=== PATIENT | female | born 1985 | race Caucasian/White ===

== ENCOUNTER 2020-07-28 21:39 | Emergency (ER) | payer OTHER, MEDICAID, SELFPAY ==
--- NOTE | ~2020-07-28 | XR_ITS ---
EXAMINATION: XR lumbar spine 2-3V DATE: 07/28/2020 22:11 INDICATION: Low back pain TECHNIQUE: Anteroposterior and lateral views of the lumbar spine, and cone-down lateral view of the l umbosacral junction were obtained. COMPARISON: None. FINDINGS: There are 3 mm of retrolisthesis of L5 on S1. The vertebral body alignment is otherwise gabriel ntained. Vertebral body heights and intervertebral disc spaces are normal. There is no fracture. A mo derate volume of colonic stool is present. IMPRESSION: 1. Mild lumbar spondylosis without acute findings. Reviewed, dictated and finalized at location A.
[2020-07-28 21:44] VITALS: BP 115/59; PULSE 81; RESP 16; TEMP 37.1; O2SAT 97
--- NOTE | 2020-07-28 22:00 | ED.BACK ---
HPI - Back Pain/Injury General Chief Complaint: Back Pain/Injury <Tamiko Arthur PA-C - Last Filed: 07/28/20 23:52> Stated Complaint: lower back pain <SREE Das Last Filed: 07/28/20 23:52> Time Seen by Provider: 07/28/20 21:44 <Tamiko Arthur PA-C - Last Filed: 07/28/20 23:52> Source: patient <SREE Das Last Filed: 07/28/20 23:52> Mode of arrival: ambulatory <SREE Das Last Filed: 07/28/20 23:52> Limitations: no limitations <SREE Das Last Filed: 07/28/20 23:52> History of Present Illness HPI Narrative: This is a 35-year-old female that presents the emergency department for low back pain since this morning. No known injury or trauma. Reports the pain radiates down her left leg. Pain is worse with movement and relieved with rest. She took Advil couple of hours prior to arrival. Denies fever, saddle anesthesia, bowel/bladder incontinence, abdominal pain, vomiting, dysuria, hematuria. <Tamiko Arthur PA-C - Last Filed: 07/28/20 23:52> Related Data Allergies/Adverse Reactions: Allergies Allergy/AdvReac Type Severity Reaction Status Date / Time No Known Allergies Allergy Unverified 02/27/19 09:33 <Tamiko Arthur PA-C - Last Filed: 07/28/20 23:52> Review of Systems Review of Systems: Narrative: CONSTITUTIONAL: Denies fever GASTROINTESTINAL: Denies abdominal pain, nausea, vomiting GENITOURINARY: Denies dysuria or hematuria. SKIN: Denies rash MUSCULOSKELETAL: Reports back pain, joint pain, and myalgia. NEUROLOGIC: Denies numbness, or weakness. <SREE Das Last Filed: 07/28/20 23:52> All systems reviewed & are unremarkable except as noted in HPI and below <SREE Das Last Filed: 07/28/20 23:52> COUNT INCLUDES THE [facility] Social History Social History: Social History (Updated 07/28/20 @ 22:01 by Tamiko Arthur PA-C) Smoking status: Never smoker Alcohol intake: never Substance use: never <Tamiko Arthur PA-C - Last Filed: 07/28/20 23:52> Exam Narrative: Exam Narrative: GENERAL: Well-appearing, well-nourished, and in no acute distress. HEAD: Normocephalic, atraumatic. EYES: EOMI. CHEST: Clear to auscultation. No respiratory distress. No wheezes rales or rhonchi HEART: Regular rate and rhythm. No murmur heard. Normal peripheral pulses. ABDOMEN: Soft, nontender, nondistended, normal active bowel sounds. No CVA tenderness BACK: No midline spinal tenderness EXTREMITIES: Normal range of motion. No edema. Strength equal in bilateral lower extremities (5/5). Normal patellar reflexes bilaterally SKIN: Warm, dry, no rash. NEURO: No focal deficits. Alert and oriented x3. Normal gait PSYCH: Normal mood and affect <Tamiko Arthur PA-C - Last Filed: 07/28/20 23:52> Course Vital Signs Vital signs: Vital Signs Temperature 37.1 C 07/28/20 21:44 Pulse Rate 81 07/28/20 21:44 Respiratory Rate 16 07/28/20 21:44 Blood Pressure 115/59 L 07/28/20 21:44 Pulse Oximetry 97 07/28/20 21:44 Temperature 37.1 C 07/28/20 21:44 Pulse Rate 81 07/28/20 21:44 Respiratory Rate 16 07/28/20 21:44 Blood Pressure 115/59 L 07/28/20 21:44 Pulse Oximetry 97 07/28/20 21:44 <Tamiko Arthur PA-C - Last Filed: 07/28/20 23:52> Vital Signs Temperature 37.1 C 07/28/20 21:44 Pulse Rate 81 07/28/20 21:44 Respiratory Rate 16 07/28/20 21:44 Blood Pressure 115/59 L 07/28/20 21:44 Pulse Oximetry 97 07/28/20 21:44 Temperature 37.1 C 07/28/20 21:44 Pulse Rate 81 07/28/20 21:44 Respiratory Rate 16 07/28/20 21:44 Blood Pressure 115/59 L 07/28/20 21:44 Pulse Oximetry 97 07/28/20 21:44 <Brooklynn Fragoso MD - Last Filed: 07/28/20 23:55> MDM - Back Pain/Injury MDM Narrative Medical decision making narrative: Patient presents to the emergency department for low back pain today. No known injury or trauma. Patient is neurologically i
[2020-07-28] MEDS: ACETAMINOPHEN 500 MG TABLET 1000 MG PO (22:20)
[2020-07-28] MEDS: diazePAM INJ (*CRX) 10 MG/2 ML SYRINGE 5 MG IM (22:58)
[2020-07-28 23:07] LABS: Add Urine Microscopic? YES; Appearance Urine Cloudy (Clear); Bilirubin Urine Negative (Negative); Color Urine Yellow (Yellow); Glucose Urine UA Negative (Negative); Ketones Urine Negative (Negative); Leukocyte Esterase Ur 2+ LEU/UL (Negative); Mucus Urine Rare /lpf; Nitrate Urine Negative (Negative); Protein Urine 1+ mg/dL (Negative); Specific Grav Ur 1.027 (1.001-1.035); Squamous Epithelial Cell Urine Many /hpf (Few); WBC Urine >75 /hpf
[2020-07-28 23:13] LABS: Blood Urine Negative (Negative)
[2020-07-29 00:21] VITALS: BP 132/78; PULSE 77; RESP 16; O2SAT 99
== END 2020-07-29 00:22 | disposition home or self-care (01) ==
PROVIDERS: Physician Assistant; Emergency Provider Emergency Medicine
DX: M54.42 Lumbago with sciatica, left side (principal); R82.81 Pyuria; M47.816 Spondylosis without myelopathy or radiculopathy, lumbar region
CPT/HCPCS: 72100; 81001; 81025; 87077; 87086; 87088; 96372; 99283; A9270; J3360

== ENCOUNTER 2020-10-22 07:42 | Emergency (ER) | payer OTHER, MEDICAID, SELFPAY ==
[2020-10-22 07:44] VITALS: BP 119/70; PULSE 66; RESP 20; TEMP 36.8; O2SAT 100
[2020-10-22] MEDS: SODIUM CHLORIDE 0.9% IV 1,000 ML 999 ML IV CONT (08:30)
[2020-10-22] MEDS: diphenhydrAMINE HCl INJ 50 MG/ML VIAL 25 MG IV PUSH (08:31)
[2020-10-22] MEDS: METOCLOPRAMIDE HCL INJ 10 MG/2 ML VIAL IV PUSH (08:32)
[2020-10-22 08:44] LABS: Basophils Percent Auto 0.4 % (0.2-1.2); Eosinophils Absolute Auto 0.1 K/mm3 (0-0.3); Eosinophils Percent Auto 0.8 % (0-4.4); Hemoglobin 12.6 g/dL (12.0-15.0); Immature Granulocyte Absolute 0.03 K/mm3 (0.00-0.031); Immature Granulocyte Percent A 0.4 % (0-0.5); Lymphocytes Absolute Auto 2.17 K/mm3 (0.9-3.2); Lymphocytes Percent Auto 27.5 % (18.3-44.2); Mean Corpuscular HGB Conc 33.2 g/dl (32-36); Mean Corpuscular Hemoglobin 29.7 pg (26-34); Mean Corpuscular Volume 89.6 fl (80-100); Mean Platelet Volume 9.6 fl (7.4-10.4); Monocytes Absolute Auto 0.5 K/mm3 (0.1-0.6); Monocytes Percent Auto 5.8 % (2.6-8.5); Neutrophils Absolute Auto 5.2 K/mm3 (1.3-6.7); Neutrophils Percent Auto 65.1 % (45.5-73.1); Platelet Count Result 204 k/mm3 (150-375); Red Blood Count 4.24 M/mm3 (4.2-5.4); Red Cell Distribution Width 12.6 % (11.5-14.5); White Blood Count 7.9 K/mm3 (4.5-10.0)
[2020-10-22 08:51] LABS: Add Urine Microscopic? YES; Appearance Urine Clear (Clear); Bacteria Urine Trace /hpf; Bilirubin Urine Negative (Negative); Blood Urine Negative (Negative); Calcium Oxalate Crystals Urine Present /hpf; Color Urine Yellow (Yellow); Glucose Urine UA Negative (Negative); Ketones Urine Negative (Negative); Leukocyte Esterase Ur Trace LEU/UL (Negative); Mucus Urine Rare /lpf; Nitrate Urine Negative (Negative); Protein Urine Negative (Negative); RBC Urine 0-2 /hpf (0-2); Specific Grav Ur 1.027 (1.001-1.035); Squamous Epithelial Cell Urine Moderate /hpf (Few)
[2020-10-22 09:03] LABS: Alanine Aminotransferase 26 U/L (4-35); Albumin Level 3.9 g/dL (3.5-5.1); Alkaline Phosphatase 35 U/L (38-126); Anion Gap 6 mmol/L (8-16); Aspartate Amino Transferase 21 U/L (14-36); Bilirubin,Total 0.3 mg/dL (0.2-1.3); Blood Urea Nitrogen 13 mg/dL (7-17); Carbon Dioxide 28 mmol/L (22-30); Chloride 106 mmol/L (98-107); Estimated CRCL calculation 104 ml/min; Estimated Glomerular Filt Rate > 60; Glucose 104 mg/dL (65-105); Potassium 3.7 mmol/L (3.4-5.0); Sodium 140 mmol/L (137-145)
--- NOTE | 2020-10-22 09:09 | ED.GENADULT ---
HPI - General Adult General Chief complaint: Headache Stated complaint: HEADACHE Time Seen by Provider: 10/22/20 07:55 Source: patient Mode of arrival: ambulatory Limitations: no limitations History of Present Illness HPI narrative: This patient is a 35 year old female who presents for evaluation of multiple complaints. She reports that once she got to work this morning she started not feeling well. She reports throbbing frontal headache that started 40 minutes ago. She also her eyes feel warm . She denies blurred vision, grittiness, watering. She also reports she felt warm so she checked her temperature. She reports she did not have a fever. She denies cough, sob , vomiting, diarrhea, sore throat, loss of taste of smell. She reports a vague stomach ache this morning. She states she just feels off and she never gets sick so she was told to come to ER. She works in [employer] so she wants to get checked since she has 5 kids at home. Related Data Home Medications Medication Instructions Recorded Confirmed No Home Medications 10/22/20 10/22/20 Allergies Allergy/AdvReac Type Severity Reaction Status Date / Time No Known Allergies Allergy Verified 10/22/20 07:47 Review of Systems Review of Systems: All systems reviewed & are unremarkable except as noted in HPI and below Constitutional: Constitutional: Denies chills and Denies fever(s) Eyes: Eyes: Denies change in vision ENT: Denies nasal congestion and Denies sore throat Cardiovascular: Cardiovascular: Denies chest pain Respiratory: Respiratory: Denies cough and Denies dyspnea Gastrointestinal: Gastrointestinal: Reports abdominal pain, Denies diarrhea and Denies vomiting Genitourinary: Genitourinary: Denies hematuria, Denies nocturia, Denies dysuria and Denies vaginal discharge Musculoskeletal: Musculoskeletal: Denies back pain Neurologic: Reports headache(s), Denies focal weakness and Denies numbness PMFSH Past Medical History Medical History (Updated 10/22/20 @ 10:04 by Mamta Crum MD) Patient denies medical problems Social History Social History (Updated 07/28/20 @ 22:01 by Tamiko Arthur PA-C) Smoking status: Never smoker Alcohol intake: never Substance use: never Exam Narrative: Exam Narrative: GENERAL: Well-appearing, well-nourished, and in no acute distress. HEAD: Normocephalic, atraumatic EYES: PERRLA and EOMI, conjunctiva clear without discharge EARS: TM's clear bilaterally without erythema or dullness THROAT:Mucous membranes moist, Oropharynx normal without erythema, exudate, peritonsillar swelling or fluctuance NECK: Supple, without lymphadenopathy or mass RESPIRATORY: No respiratory distress, Airway patent, Respirations non-labored, Clear to auscultation without rales, rhonchi or wheeze HEART: Regular rate and rhythm. No murmur heard. Normal peripheral pulses. ABDOMEN: Soft, nontender, nondistended, normal active bowel sounds. No masses. No rebound or guarding, No organomegaly. EXTREMITIES: No edema, normal strength with full range of motion. SKIN: Warm, dry, normal color without rash NEURO: Alert and oriented x3. CN 2-12 grossly intact. No focal deficits. PSYCH: Normal mood and affect. Course Reevaluation(s) Reevaluation #1: Patient reports her headache has resolved. I discussed with patient labs are unremarkable. She does not have clear signs of covid. Date: 10/22/20 Time: 10:03 Vital Signs Vital signs: Vital Signs Temperature 98.2 F 10/22/20 07:44 Pulse Rate 66 10/22/20 07:44 Respiratory Rate 20 10/22/20 07:44 Blood Pressure 119/70 10/22/20 07:44 Pulse Oximetry 100 10/22/20 07:44 Temperature 98.2 F 10/22/20 07:44 Pulse Rate 64 10/22/20 10:15 Respiratory Rate 16 10/22/20 10:15 Blood Pressure 111/67 10/22/20 10:15 Pulse Oximetry 100 10/22/20 10:15 Medical Decision Making Vital Signs Vital Signs: Vital Signs Temperature 98.2 F
[2020-10-22 10:15] VITALS: BP 111/67; PULSE 64; RESP 16; O2SAT 100
== END 2020-10-22 10:15 | disposition home or self-care (01) ==
PROVIDERS: Emergency Provider General Practice
DX: R51.9 Headache, unspecified (principal)
CPT/HCPCS: 36415; 80053; 81001; 81025; 85025; 87804; 96361; 96374; 96375; 99284; J1200; J2765; J7030

== ENCOUNTER 2022-07-30 07:10 | Emergency (ER) | payer OTHER, MEDICAID, SELFPAY ==
[2022-07-30 07:14] VITALS: BP 120/65; PULSE 70; RESP 18; TEMP 36.6; O2SAT 100
--- NOTE | 2022-07-30 07:35 | ED_ITS ---
HPI - Allergic Reaction General Chief complaint: Allergic Reaction Stated complaint: Right Sided Facial Swelling Time Seen by Provider: 07/30/22 07:32 History of Present Illness HPI narrative: Pt was mowing a couple of days ago and developed rash yesterday on face and legs and abdomen. Pt says it itches really bad and now her right eyelid is swollen. Pt denies SOB or throat swelling. Related Data Allergies Allergy/AdvReac Type Severity Reaction Status Date / Time No Known Allergies Allergy Verified 07/30/22 07:24 Review of Systems Review of Systems: All systems reviewed & are unremarkable except as noted in HPI and below PMFSH Past Medical History Medical History (Updated 07/30/22 @ 07:39 by Rebecca Jones III, DO) Patient denies medical problems Social History Social History (Updated 07/28/20 @ 22:01 by Tamiko Arthur PA-C) Smoking status: Never smoker Alcohol intake: never Substance use: never Exam Const: General: healthy appearing and no acute distress Nutritional Appearance: well nourished Orientation/consciousness: patient oriented x3 Limitations: no limitations HENMT: Other: swelling right vace and eyelid due to erythemoatous macular rash Eyes: Conjunctivae: conjunctivae normal EOM: EOMs intact bilaterally Neck: Neck: no meningeal signs Resp: Effort & Inspection: normal respiratory effort Auscultation: clear to auscultation bilaterally Cardio: Rate: regular rate Rhythm: regular rhythm GI: GI Palp: Yes Soft to palpation Auscultation: normal bowel sounds Skin: Other: erythematous macular rash to face left leg and abdomen Neuro: General: patient oriented x3 Cranial nerves: Yes Nystagmus not present Speech: normal speech Extrem: General: normal to inspection Psych: Mental Status: mental status grossly normal Affect: normal affect Attitude: cooperative Course Vital Signs Vital signs: Vital Signs Temperature 97.8 F 07/30/22 07:14 Pulse Rate 70 07/30/22 07:14 Respiratory Rate 18 07/30/22 07:14 Blood Pressure 120/65 07/30/22 07:14 Pulse Oximetry 100 07/30/22 07:14 Oxygen Delivery Room Air 07/30/22 07:14 Temperature 97.8 F 07/30/22 07:14 Pulse Rate 70 07/30/22 07:14 Respiratory Rate 18 07/30/22 07:14 Blood Pressure 120/65 07/30/22 07:14 Pulse Oximetry 100 07/30/22 07:14 Oxygen Delivery Room Air 07/30/22 07:14 Discharge Plan Discharge Clinical Impression: Contact dermatitis Patient Disposition: Home, Self-Care Condition: Stable Instructions: Antibiotic Form, Contact Dermatitis (ED) Prescriptions: New prednisone 50 mg tablet 50 mg PO DAILY Qty: 5 0RF Follow-up/Referrals: PHYSICIAN,[employer]IST [Primary Care Provider] - Stand Alone Forms: Work/School Release IP
[2022-07-30 08:39] VITALS: BP 104/64; PULSE 78; RESP 18; O2SAT 100
== END 2022-07-30 08:40 | disposition home or self-care (01) ==
PROVIDERS: Emergency Provider Emergency Medicine
DX: L25.9 Unspecified contact dermatitis, unspecified cause (principal)
CPT/HCPCS: 99283

== ENCOUNTER 2024-03-17 09:09 | Emergency (ER) | payer BC, SELFPAY ==
[2024-03-17 09:27] VITALS: BP 107/60; PULSE 68; RESP 16; TEMP 36.3; O2SAT 100
--- NOTE | 2024-03-17 09:45 | ED.SKABFB ---
HPI - Skin/Abscess/Foreign Bdy General Chief complaint: Skin/Abscess/Foreign Body Stated complaint: RASH/EYES SWELLING Source: patient, RN notes reviewed and old records reviewed Mode of arrival: ambulatory Limitations: no limitations History of Present Illness HPI narrative: 38 year old female presents to [facility] care with complaints of red itchy rash to the underside of her chin which patient reports that she noted last night. Patient reports that she is highly sensitive to poison Sandy and her daughter has it on her bilateral arms and she thinks she got exposure from her. Patient reports that she has been applying Calamine lotion to area and is very itchy. patient denies any difficulty with her breathing or with swallowing. MD complaint: rash Onset (ago): day(s) (last night) Severity: mild Quality: pruritic Treatments prior to arrival: other (calamine lotion) Related Data Allergies Allergy/AdvReac Type Severity Reaction Status Date / Time No Known Allergies Allergy Verified 03/17/24 09:31 Review of Systems Review of Systems: CONSTITUTIONAL: Denies fever, chills, or sweats. CARDIOVASCULAR: Denies chest pain, palpitations, or edema. RESPIRATORY: Denies cough or dyspnea. SKIN: Reports red itchy rash to her chin region MUSCULOSKELETAL: Denies joint pain or myalgia. NEUROLOGIC: Denies headache, numbness, or weakness. All systems reviewed & are unremarkable except as noted in HPI and below PMFSH Past Medical History Medical History (Updated 03/17/24 @ 09:54 by Brooklynn Chopra NP) Patient denies medical problems Social History Social History (Updated 07/28/20 @ 22:01 by Tamiko Arthur PA-C) Smoking status: Never smoker Alcohol intake: never Substance use: never Comments At time of signature, agree with nursing past medical, surgical, social and family history. There is no relevant family history pertinent to the presenting complaint Exam Narrative: GENERAL: Well-appearing, well-nourished, and in no acute distress. HEAD: Normocephalic, atraumatic. EYES: PERRLA, conjunctivae clear, and EOMI. ENT: Mucous membranes moist. Oropharynx without edema, erythema or lesions. NECK: Supple. No lymphadenopathy CHEST: Clear to auscultation. No respiratory distress.SAO2 100% on room air HEART: Regular rate and rhythm. SKIN: Warm, dry.? Patches of erythema and edema with itching to skin under chin NEURO:? Alert and oriented x3. PSYCH: Normal mood and affect Course Course Emergency Course: Patient is aware of diagnosis, understands and agrees to treatment plan.? Anticipatory guidance given.? Patient agrees to follow-up as directed and is aware of reasons to seek care at the emergency department. Portions of this record may have been created with voice recognition software Level of Care: Express Care Visit Vital Signs Vital signs: Vital Signs Temperature 36.3 C L 03/17/24 09:27 Pulse Rate 68 03/17/24 09:27 Respiratory Rate 16 03/17/24 09:27 Blood Pressure 107/60 03/17/24 09:27 Pulse Oximetry 100 03/17/24 09:27 Temperature 36.3 C L 03/17/24 09:27 Pulse Rate 68 03/17/24 09:27 Respiratory Rate 16 03/17/24 09:27 Blood Pressure 107/60 03/17/24 09:27 Pulse Oximetry 100 03/17/24 09:27 Reviewed MDM - Skin/Abscess/Foreign Bdy MDM Narrative Medical decision making narrative: Does not appear at this time to be erythema multiforme, bullous, SJS, TEN; no evidence at this time to suggest RMSF, endocarditis or Lyme disease; patient looks well, nontoxic and is tolerating oral intake; no neurologic signs or symptoms; no headache, photophobia or neck pain; afebrile; appropriate for initial outpatient treatment; discussed the importance of follow-up, patient agrees; question, viral exanthema, contact dermatitis, allergic dermatitis, eczema, urticaria. No soft palate or uvula edema, no tongue, lip edema or other mucosal involvement, no respiratory compromise, no str
== END 2024-03-17 09:58 | disposition home or self-care (01) ==
PROVIDERS: Emergency Provider Registered Nurse
DX: L23.7 Allergic contact dermatitis due to plants, except food (principal)
CPT/HCPCS: 99213; G0463

== ENCOUNTER 2024-06-11 22:08 | Emergency (ER) | payer OTHER, SELFPAY ==
--- NOTE | ~2024-06-11 | XR_ITS ---
XR chest 2V Ordering provider: Mitch Gloria MD History: 39 years Female with . Fall DOG PULLED HER AFTER TRIPPING HER THIS EVENING . Comparison: April 13, 2020 FINDINGS: MEDIASTINUM: The cardiac silhouette is not enlarged. LUNGS: No infiltrates, effusions or pneumothorax. OTHER: No free air under the diaphragm. S-shaped scoliosis. IMPRESSION: No acute cardiopulmonary pathology. Reviewed, dictated and finalized at location A.
--- NOTE | ~2024-06-11 | CT_ITS ---
CT abdomen pelvis w con Ordering provider: Mitch Gloria MD History: 39 years Female with . Right flank pain . Comparison: None. Technique: CT abdomen and pelvis with IV and without oral contrast. Automated exposure control and it erative reconstruction technique were employed. The dose-length product was 836.38 mGy-cm. 100 mL Omn ipaque 350 was given IV. Findings: VISUALIZED LOWER CHEST: Dependent atelectatic changes. UPPER ABDOMINAL ORGANS: Liver: Fat infiltration. Hepatomegaly. Gallbladder: Normal. Cholelithiasis with edematous wall which may indicate acute cholecystitis. Clini mela correlation advised. Spleen: Normal. Stomach/duodenum: Small sliding hiatus hernia. Pancreas: Normal. Adrenals: Normal. Kidneys: Tiny cysts in both kidneys. PELVIC ORGANS: The bladder shows slightly thickened wall which may indicate cystitis. Clinical evalua tion advised. Uterus: Slightly bulky retroverted. The right ovary is shows hypodense area with hyper dense which ma y indicate a ruptured follicle. BOWEL AND MESENTERY: Colon: No evidence diverticulitis. Fecal material is loaded in the colon. Normal appendix. Small Bowel: Normal. No obstruction. Peritoneum/mesentery: No free air. Minimal free fluid seen around the uterus in the pelvis.. No mesen teric lymphadenopathy. RETROPERITONEUM: Normal aorta. No retroperitoneal lymphadenopathy. MUSCULOSKELETAL: Superficial soft tissues: The superficial soft tissues are normal. Bones: Normal spine. IMPRESSION: 1. Hepatomegaly with fat infiltration. 2. Cholelithiasis with thickened wall of the gallbladder which may indicate cholecystitis. Clinical correlation advised. 3. Highly suggestive of ruptured follicle with minimal fluid in the pelvis. 4. Constipation. Reviewed, dictated and finalized at location A. IMPRESSION: 1. Hepatomegaly with fat infiltration. 2. Cholelithiasis with thickened wall of the gallbladder which may indicate ch olecystitis. Clinical correlation advised. 3. Highly suggestive of ruptured follicle with minimal fluid in the pelvis. 4. Constipation.
--- NOTE | ~2024-06-11 | XR_ITS ---
SINGLE AP VIEW PELVIS Ordering provider: Mitch Gloria MD History: . Right hip pain . Comparison: None. FINDINGS: BONES: No acute fracture or dislocation. Small sclerotic area seen in the right acetabulum. Follow-up advised. HIP JOINT SPACES: Normal. SACROILIAC JOINT SPACES/LUMBAR SPINE: The sacroiliac joint spaces are normal. Normal visualized lower lumbar spine. PUBIC SYMPHYSIS: Normal. SOFT TISSUES: Normal. IMPRESSION: No acute osseous abnormality pelvis. Reviewed, dictated and finalized at location A.
[2024-06-11 22:14] VITALS: BP 127/71; PULSE 84; RESP 16; TEMP 36.6; O2SAT 100
[2024-06-11] MEDS: LIDOCAINE 5% PATCH 1 PATCH TRANSDERM (22:26)
[2024-06-11] MEDS: KETOROLAC 30 MG/ML VIAL (*BKC) IM (22:26)
[2024-06-11 22:29] LABS: BEDSIDEPREGUCG Negative
[2024-06-11 22:35] LABS: Add Urine Microscopic? YES; Appearance Urine Cloudy (Clear); Bacteria Urine 2+ /hpf; Bilirubin Urine Negative (Negative); Blood Urine Non-Hemolyzed Trace (Negative); Color Urine Yellow (Yellow); Glucose Urine UA Negative (Negative); Ketones Urine Negative (Negative); Leukocyte Esterase Ur 3+ LEU/UL (Negative); Nitrate Urine Negative (Negative); Non Pathogenic Casts 0-2; Protein Urine Trace mg/dL (Negative); Specific Grav Ur 1.023 (1.001-1.035); Squamous Epithelial Cell Urine Few /hpf (Few); WBC Urine >100 /hpf (0-3)
--- NOTE | 2024-06-11 22:47 | ED.ABDPAIN ---
HPI - Abdominal Pain General Chief Complaint: Abdominal Pain Stated Complaint: abdominal pain Time Seen by Provider: 06/11/24 22:11 Source: patient Mode of arrival: wheelchair Limitations: no limitations History of Present Illness HPI narrative: This is a 39-year-old female, with no significant past medical history, presents emergency department complaining of right flank pain after a fall today. The patient states approximately 30 minute prior to arrival, she was walking her mastiff which suddenly ran, pulling her right arm forward and across the body forcefully, causing her to fall to the ground. She states she struck the right side, including the right hip in knee but did not hit her head or lose consciousness. She complains of sharp right hip and flank pain that radiates across the abdomen. She has no other complaints at this time. Related Data Allergies Allergy/AdvReac Type Severity Reaction Status Date / Time No Known Allergies Allergy Verified 03/17/24 09:31 Review of Systems Review of Systems: Last menstrual period 1 month ago All systems reviewed & are unremarkable except as noted in HPI and below PMFSH Past Medical History Medical History Cyclothymic disorder Patient denies medical problems Surgical History Surgical History No significant past surgical history Social History Social History Smoking status: Never smoker Alcohol intake: never Substance use: never Exam Narrative: GENERAL: Well-developed, well-nourished, appears uncomfortable HEAD: Normocephalic, atraumatic. EYES: PERRLA and EOMI. NECK: Supple. No midline spine tenderness to palpation, no step-off or crepitus CHEST: Clear to auscultation. No respiratory distress. No wheezes rales or rhonchi HEART: Regular rate and rhythm. No murmur heard. Normal peripheral pulses. ABDOMEN: Soft, tender to palpation, primarily in the right flank and periumbilical region without rebound or guarding, nondistended, normal active bowel sounds. No CVA tenderness to palpation BACK: No midline spine tenderness to palpation, no step-off or crepitus EXTREMITIES: Normal range of motion. No edema. SKIN: Warm, dry, no rash. NEURO: Alert and oriented x3. No focal deficit. Moving all 4 limbs spontaneously PSYCH: Normal mood and affect. Course Course Emergency Course: 22:49 - My review of the patient's pelvis x-ray not concerning for fracture or dislocation. My review of the patient's chest x-ray is not concerning for fracture or pneumothorax. 00:30 - Urinalysis demonstrated greater than 100 white blood cells, 6-10 rbc's, leukocyte esterase and bacteriuria without nitrates. I obtained a CT abdomen pelvis to rule out kidney injury. CT demonstrated an incidental gallstone, bladder wall thickening and changes consistent with a ruptured follicle. I suspect musculoskeletal full strain the pain be exacerbated by the ruptured follicle. I do not suspect other acute traumatic injury at this time. On re-evaluation, the patient states her pain is significantly improved. Chemistries unremarkable. Will bright a prescription for antibiotics, though I advised the patient, in the absence of symptoms they may not be necessary and recommended follow-up with her primary care doctor. I discussed the findings and recommendations with the patient. Discussed return and emergency precautions including signs/symptoms of acute abdomen and respiratory distress. The patient voiced understanding and agreement with the plan. All questions answered to her satisfaction. Vital Signs Vital signs: Vital Signs Temperature 98 F 06/11/24 22:14 Pulse Rate 84 06/11/24 22:14 Respiratory Rate 16 06/11/24 22:14 Blood Pressure 127/71 06/11/24 22:14 Pulse Oximetry 100 06/11/24 22:14 Oxygen Delivery Room Air 06/11/24 22
[2024-06-11 23:24] LABS: Anion Gap 10 mmol/L (4-12); Blood Urea Nitrogen 17 mg/dL (7-17); Calcium 8.9 mg/dL (8.4-10.2); Carbon Dioxide 25 mmol/L (22-30); Chloride 104 mmol/L (98-107); Estimated CRCL calculation 89 ml/min; Estimated Glomerular Filt Rate > 60; Glucose 105 mg/dL (65-110); Potassium 3.7 mmol/L (3.4-5.0); Sodium 139 mmol/L (137-145)
[2024-06-12 00:42] VITALS: BP 120/82; PULSE 79; RESP 16; O2SAT 100
== END 2024-06-12 00:43 | disposition home or self-care (01) ==
PROVIDERS: Emergency Provider Preventive Medicine Aerospace Medicine
DX: K80.20 Calculus of gallbladder without cholecystitis without obstruction (principal); S80.01XA Contusion of right knee, initial encounter; R82.81 Pyuria; R82.71 Bacteriuria; R16.0 Hepatomegaly, not elsewhere classified; K59.00 Constipation, unspecified; W18.39XA Other fall on same level, initial encounter
CPT/HCPCS: 36415; 71046; 72170; 74177; 80048; 81001; 81025; 87086; 96372; 99284; A9270; J1885; Q9967

== ENCOUNTER 2024-11-01 14:27 | Emergency (ER) | payer OTHER, SELFPAY ==
[2024-11-01 15:17] VITALS: BP 104/63; PULSE 87; RESP 16; TEMP 36.8; O2SAT 100
--- NOTE | 2024-11-01 16:16 | ED_ITS ---
HPI - URI/Sore Throat General Chief Complaint: Upper Respiratory Infection Stated Complaint: Upper Respiratory Symptoms Time Seen by Provider: 11/01/24 16:11 Source: patient and RN notes reviewed Mode of arrival: ambulatory Limitations: no limitations History of Present Illness HPI Narrative: Patient presents today complaining of rhinorrhea, sinus pressure, nasal congestion, sore throat, cough, chills and sweats, shortness of breath with exertion. Symptoms began yesterday. She currently rates her pain 2/10 and has been taking ibuprofen and cold medicine with mild relief. No history of asthma or COPD. She is a nonsmoker. 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 Related Data Allergies Allergy/AdvReac Type Severity Reaction Status Date / Time No Known Allergies Allergy Verified 11/01/24 15:15 Review of Systems Review of Systems: CONSTITUTIONAL: Denies body aches, fever. + chills, sweats EYES: Denies visual changes, redness, or discharge. ENT: Denies rhinorrhea, or otalgia.+ rhinorrhea, sinus pressure, nasal congestion, sore throat CARDIOVASCULAR: Denies chest pain, palpitations, or edema. RESPIRATORY: + cough, shortness of breath with exertion GASTROINTESTINAL: Denies abdominal pain, nausea, vomiting, or diarrhea. GENITOURINARY: Denies dysuria or hematuria. SKIN: Denies rash, itching, or wounds. MUSCULOSKELETAL: Denies back pain, joint pain, or myalgia. NEUROLOGIC: Denies headache, numbness, tingling, or weakness. PSYCH: Denies depression or anxiety. [facility] Past Medical History Medical History Cyclothymic disorder Patient denies medical problems Surgical History Surgical History No significant past surgical history Social History Social History Smoking status: Never smoker Alcohol intake: never Substance use: never Comments At time of signature, I have reviewed and agree with nursing past medical, surgical, social and family history unless otherwise noted. Please see nursing chart for further information. There is no relevant family history pertinent to the presenting complaint Exam Narrative: GENERAL: Mildly ill-appearing, well-nourished, and in no acute distress. HEAD: Normocephalic, atraumatic. EYES: EOMI. No redness or drainage. Conjunctivae normal. ENT: Mucous membranes pink and moist. Nares congested with rhinorrhea. TMs normal bilaterally. Throat normal. Uvula midline. NECK: Normal AROM. Supple. No lymphadenopathy. CHEST: No respiratory distress. Clear to auscultation. HEART: Regular rate and rhythm. No murmur appreciated. EXTREMITIES: Normal range of motion. No edema. SKIN: Warm, dry, no rash. Capillary refill normal. Normal skin turgor. NEURO: No focal deficits. Alert and oriented x3. Gait steady. PSYCH: Normal affect. No signs of depression or anxiety. Course Course Level of Care: Express Care Visit Vital Signs Vital signs: Vital Signs Temperature 98.2 F 11/01/24 15:17 Pulse Rate 87 11/01/24 15:17 Respiratory Rate 16 11/01/24 15:17 Blood Pressure 104/63 11/01/24 15:17 Pulse Oximetry 100 11/01/24 15:17 Temperature 98.2 F 11/01/24 15:17 Pulse Rate 87 11/01/24 15:17 Respiratory Rate 16 11/01/24 15:17 Blood Pressure 104/63 11/01/24 15:17 Pulse Oximetry 100 11/01/24 15:17 Reviewed MDM - URI/Sore Throat MDM Narrative Medical decision making narrative: COVID positive. Influenza and rapid strep negative. Patient would like to try Paxlovid. Discussed [id number] medication use as well as duration of illness. Anticipatory guidance given. ED precautions given. Differential Diagnosis Differential diagnosis: Likely upper respiratory infection, sinusitis, viral infection, influenza, pharyngitis and other (Strep throat, COVID) Lab Data Attestation: I reviewed the patient's lab results. Labs: Lab Results 11/01/24 11/01/24 Range/Units 16:18 16:35 POC Influenza A Ag Negative (Negative) POC Influenza B Ag Negative (Negative) POC SARS CoV-2 Ag Positive (Negative) POC Grp A Strep Screen Negative (Negative) Critical Care Time Critical Care Time Critical Care Time: No Discharge Plan Discharge Clinical Impression: COVID-19 Patient Disposition: Home, Self-Care Condition: Stable Instructions: COVID-19 (Coronavirus Disease 2019) (ED) Additional Instructions: You have tested positive for COVID-19. Take the Paxlovid as prescribed. Continue [id number] medication use for symptoms as well. Rest and stay hydrated. If symptoms worsen to include shortness of breath, chest pain, please go to the ER immediately for further evaluation and treatment. Patient Language: Vietnamese Prescriptions: New Paxlovid 300 mg (150 mg x 2)-100 mg tablets,dose pack See Rx Instructions .ROUTE .COMPLEX Qty: 30 0RF Rx Instructions: take TWO 150 mg tablets of nirmatrelvir with ONE 100 mg tablet of ritonavir twice daily for 5 days Follow-up/Referrals: PHYSICIAN,BLEACHING SUPERVISOR [Primary Care Provider] - Stand Alone Forms: Work/School Release IP Time of Disposition: 16:49
[2024-11-01 16:37] LABS: EDSTREPNEGPOS1 Negative (Negative)
[2024-11-01 16:41] LABS: EDCOVIDSCREEN Positive (Negative); EDINFLUASCREEN Negative (Negative); EDINFLUBSCREEN Negative (Negative)
== END 2024-11-01 16:40 | disposition home or self-care (01) ==
PROVIDERS: Emergency Provider Nurse Practitioner
DX: U07.1 COVID-19 (principal)
CPT/HCPCS: 87081; 87426; 87804; 87880; 99213; G0463